=== PATIENT | female | born 1980 | race Caucasian/White ===

== ENCOUNTER → 2016-05-16 | Outpatient (CLI) | payer OTHER ==
--- OUTSIDE RECORDS SUMMARY | 2016-05-16 12:04 | XMS REPORT | Continuity of Care Document ---
Author Author [facility] Address Unknown Phone Unavailable Allergies Medications Problems Date Dx Coded Attending Type Code Diagnosis Diagnosed By 03/13/2012 YURIDIA MORA DO 625.9 PELVIC PAIN 03/13/2012 YURIDIA MORA DO V25.12 IUD REMOVAL Procedures Code [place] [address] PAP SMEAR 2011 00679 IUD REMOVAL 03/13 Results Encounters ACCT No. Visit Date/Time Discharge Status Pt. Type Provider Facility Loc./Unit Complaint [id number] 03/13/2012 15:53:00 03/13/2012 23: 59:59 CLS Outpatient YURIDIA MORA DO
--- NOTE | 2016-05-18 08:53 | Diagnostic Imaging Report ---
Bilateral screening mammogram. The current study was also evaluated with a Computer Aided Detection (CAD) system. INDICATION: Screening. No current complaints stated on the questionnaire. Chronic lump in the upper aspect of the right breast not concerning based on the referring nurse practitioner. COMPARISON: None. This is a baseline study. FINDINGS: There is a focal asymmetry seen in the upper aspect of the right breast measuring 1.0 cm in size and projecting slightly medially in the CC projection. The left breast demonstrates no focal mass. Occasional benign-appearing calcifications seen. IMPRESSION: Focal compression views and ultrasound evaluation for upper right breast focal asymmetry is recommended. ACR BI-RADS Category 0: Incomplete. (Needs additional imaging evaluation). Result letter will be mailed to the patient. Note: At least 10% of breast cancer is not imaged by mammography. Dictated by: Dictated on workstation # [id number]
== END ==
LOC: RAD 12:00
PROVIDERS: ATTEND Nurse Practitioner Adult Health
DX: Z12.31 Encounter for screening mammogram for malignant neoplasm of breast (principal)
CPT/HCPCS: 77067

== ENCOUNTER → 2016-06-01 | Outpatient (CLI) | payer OTHER ==
--- NOTE | 2016-06-01 09:27 | Diagnostic Imaging Report ---
Right breast diagnostic mammogram. The current study was also evaluated with a Computer Aided Detection (CAD) system. INDICATION: Palpable lumps and focal asymmetry in the central probably within the upper aspect of the right breast. FINDINGS: Focal compression view demonstrate increased prominence of focus within the upper aspect of the right breast measuring about 9 mm and is lobulated which may favor benign etiology. Scattered benign-appearing calcification seen. IMPRESSION: Suggestion of a lobulated 9 mm nodule in the upper aspect of the right breast. Ultrasound evaluation pending. ACR BI-RADS Category 0: Incomplete. (Needs additional imaging evaluation). Result letter will be mailed to the patient. Note: At least 10% of breast cancer is not imaged by mammography. Dictated by: Dictated on workstation # [id number]
--- NOTE | 2016-06-01 10:09 | Diagnostic Imaging Report ---
Right breast ultrasound. INDICATION: Palpable lumps and nodule in the upper aspect of the right breast. FINDINGS: The palpable areas demonstrate no underlying abnormality. At the 1 o'clock zone 4 cm from the nipple there is a hypoechoic lesion with lobulated margins measuring 0.8 x 0.5 x 0.7 cm. No significant vascularity seen. The other quadrants and retroareolar region demonstrate no other lesions. IMPRESSION: An 8-mm hypoechoic lobulated nodule at 1 o'clock zone 4 cm from the nipple is likely benign such as fibroadenoma. A six-month followup mammogram and ultrasound to demonstrate stability is suggested. If the patient has increased risk factors, then an ultrasound-guided breast biopsy could also be performed. ACR BI-RADS Category 3: Probably benign findings. Result letter will be mailed to the patient. Note: At least 10% of breast cancer is not imaged by mammography. Dictated by: Dictated on workstation # [id number]
== END ==
LOC: RAD 08:43
PROVIDERS: ATTEND Nurse Practitioner Adult Health
DX: R92.8 Other abnormal and inconclusive findings on diagnostic imaging of breast (principal)
CPT/HCPCS: 76641

== ENCOUNTER → 2016-06-13 | Outpatient (CLI) | payer OTHER ==
[~2016-06-13] VITALS: Ht 170.2 cm; Wt 63.5 kg
[~2016-06-13] MED LIST: LIDOCAINE 1% INJ 20 ML (XYLOCAINE) VIAL INJ ONE; LIDOCAINE 1% INJ 20 ML (XYLOCAINE) VIAL ONE
[2016-06-13 10:00] VITALS: BP 138/88
[2016-06-13 10:41] VITALS: BP 120/68
--- NOTE | 2016-06-13 15:09 | Diagnostic Imaging Report ---
EXAMINATION: Vacuum-assisted ultrasound-guided biopsy of breast mass right. A metallic clip placed to leesa biopsy site. INDICATION: Right breast mass. CONSENT: Informed consent was obtained from the patient. The risks, benefits, potential complications and alternatives were reviewed and all questions answered to the patient's satisfaction. FINDINGS: Ultrasound images demonstrate 0.8 CM hypoechoic mass at 1:00 zone. PROCEDURE: After sterile preparation and draping, 1% lidocaine was utilized for local anesthesia. A vacuum-assisted biopsy device with 14-gauge needle was introduced under live ultrasound guidance into the lesion. Good needle position was documented with ultrasound images. A metallic clip was placed to leesa the site of the biopsy. A subsequent mammogram is performed and confirms the proper positioning of the clip. Multiple samples were obtained and sent to pathology. The patient tolerated the procedure well with no immediate complications. IMPRESSION: Successful ultrasound-guided biopsy of 1:00 right breast mass. A metallic clip placed to leesa biopsy site. Dictated by: Dictated on workstation # [id number]
--- NOTE | 2016-06-13 15:43 | Diagnostic Imaging Report ---
EXAMINATION: CC and lateral views of the right breast. INDICATION: Documentation of clip position after ultrasound guided biopsy. FINDINGS: Satisfactory clip position at the 1 o'clock zone at the site of a nodule seen previously with mammography and ultrasound with biopsy changes confirming matching mammographic and ultrasound findings. IMPRESSION: Satisfactory clip position after ultrasound-guided biopsy of a 1 o'clock right breast mass. The Pathology results are pending. BI-RADS 4A Dictated by: Dictated on workstation # [id number]
== END ==
LOC: RAD 09:36
PROVIDERS: ATTEND Nurse Practitioner Adult Health
DX: R92.8 Other abnormal and inconclusive findings on diagnostic imaging of breast (principal)
CPT/HCPCS: 19083

== ENCOUNTER → 2017-01-30 | Outpatient (CLI) | payer SELFPAY ==
--- NOTE | 2017-01-30 19:05 | Diagnostic Imaging Report ---
Right breast diagnostic mammogram with tomography. The current study was also evaluated with a Computer Aided Detection (CAD) system. 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 Comparison exam on 06/13/2016 is evaluated. FINDINGS: The right breast parenchyma is of scattered fibroglandular tissues. There is a upper right breast 7 mm stable nodule seen. A biopsy clip adjacent to it is noted. Allowing for technique and positional differences, no suspicious change is seen. IMPRESSION: No significant change. ACR BI-RADS Category 2: Benign findings. Result letter will be mailed to the patient. Note: At least 10% of breast cancer is not imaged by mammography. Dictated by: Dictated on workstation # [id number]
== END ==
LOC: RAD 14:39
PROVIDERS: ATTEND Family Medicine
DX: N63.10 Unspecified lump in the right breast, unspecified quadrant (principal)